=== PATIENT | female | born 1990 | race African-American/Black ===

== ENCOUNTER 2021-06-21 22:02 | Inpatient (IN) | payer OTHER, SELFPAY ==
--- NOTE | ~2021-06-21 | CT_ITS ---
EXAMINATION: CTA chest PE protocol EXAM DATE: 06/22/2021 03:24 INDICATION: Shortness of breath and elevated d-dimer. Cough. TECHNIQUE: Spiral CTA of the chest (pulmonary arteries) was performed with 100 cc Omnipaque 350 intr avenous contrast injection. Images were acquired during the pulmonary arterial phase. Coronal maxi mum intensity projection 3D-reconstructions were created by the technologist on dedicated workstation . Axial, coronal and sagittal reformatted images were reviewed. The dose-length product (DLP) for t his examination was 994.66 mGy-cm. The exposure was tailored according to patient size (auto mA exp osure control), and iterative reconstruction (ASIR) was used as additional dose reduction technique. Correlation is made to chest x-ray 06/21. FINDINGS: Pulmonary arteries are well opacified and without intraluminal filling defects. No thora cic aortic dissection. Vague ill-defined bilateral lower lobe, left upper lobe groundglass opacities could indicate COVID pneumonia given community prevalence, or other viral pneumonia. There are no p leural or pericardial effusions. Tracheobronchial tree is patent. There is no mediastinal, hilar or axillary lymphadenopathy. There is no pneumothorax. Heart normal in size. No evidence of cor onary arterial calcification. Upper abdomen is unremarkable. Right 10th and 11th rib fractures poste riorly with mature appearing callus formation. There is thoracic spondylosis without osteoblastic or osteolytic lesions identified. IMPRESSION: 1. Ill-defined vague groundglass opacities could indicate early COVID pneumonia or other infectious process. 2. Subacute right 10th, 11th rib fractures. 3. No pulmonary emboli. Reviewed, dictated and finalized at location A. IMPRESSION: 1. Ill-defined vague groundglass opacities could indicate early COVID pneumoni a or other infectious process. 2. Subacute right 10th, 11th rib fractures. 3. No pulmonary emboli.
--- NOTE | ~2021-06-21 | XR_ITS ---
EXAMINATION: XR chest 2V EXAM DATE: 06/21/2021 22:42 INDICATION: Shortness of breath, productive cough, congestion. TECHNIQUE: Frontal and lateral projections of the chest obtained and reviewed. There is no prior olman dy for comparison. FINDINGS: The lungs are clear, cannot identify the vague basilar groundglass opacities seen on CT. T here are no pleural effusions. The cardiomediastinal silhouette is within normal limits. There is n o pneumothorax suspected. The bones and soft tissues are unremarkable. IMPRESSION: Cannot visualize airspace disease identified on CT. Reviewed, dictated and finalized at location A.
[2021-06-21 22:08] VITALS: BP 176/108; PULSE 126; RESP 22; TEMP 36.6; O2SAT 100
--- NOTE | 2021-06-21 22:10 | ECG_ITS ---
Measurements Intervals [place] Rate: 125 P: 70 SC: 150 QRS: 114 QRSD: 90 T: 34 QT: 300 QTc: 433 Interpretive Statements SINUS TACHYCARDIA RIGHT AXIS DEVIATION POOR R WAVE PROGRESSION, ANTERIOR LEADS BASELINE WANDER- II, III, AVL, AVF, V1-V6 ABNORMAL ECG Electronically Signed On 06-22-2021 6:47:47 CDT by Juanito Joyner D.O.
[2021-06-21 22:52] LABS: Basophils Percent Auto 0.5 % (0.2-1.2); Eosinophils Absolute Auto 0.3 K/mm3 (0-0.3); Eosinophils Percent Auto 3.3 % (0-4.4); Hematocrit 43.5 % (37.0-47.0); Hemoglobin 13.5 g/dL (12.0-15.0); Immature Granulocyte Absolute 0.01 K/mm3 (0.00-0.031); Immature Granulocyte Percent A 0.1 % (0-0.5); Lymphocytes Absolute Auto 2.28 K/mm3 (0.9-3.2); Lymphocytes Percent Auto 29.3 % (18.3-44.2); Mean Corpuscular Hemoglobin 27.3 pg (26-34); Mean Corpuscular Volume 88.1 fl (80-100); Mean Platelet Volume 9.1 fl (7.4-10.4); Monocytes Absolute Auto 0.7 K/mm3 (0.1-0.6); Monocytes Percent Auto 9.4 % (2.6-8.5); Neutrophils Absolute Auto 4.5 K/mm3 (1.3-6.7); Neutrophils Percent Auto 57.4 % (45.5-73.1); Platelet Count Result 324 k/mm3 (150-375); Red Blood Count 4.94 M/mm3 (4.2-5.4); Red Cell Distribution Width 13.3 % (11.5-14.5); White Blood Count 7.8 K/mm3 (4.5-10.0)
[2021-06-21 23:00] LABS: Anion Gap 8 mmol/L (8-16); Blood Urea Nitrogen 9 mg/dL (7-17); Calcium 9.3 mg/dL (8.4-10.2); Carbon Dioxide 27 mmol/L (22-30); Chloride 104 mmol/L (98-107); Estimated CRCL calculation 159 ml/min; Estimated Glomerular Filt Rate > 60; Glucose 99 mg/dL (65-110); Potassium 4.4 mmol/L (3.4-5.0); Sodium 139 mmol/L (137-145)
[2021-06-22] VITALS (14 sets, daily range): BP systolic 131–169; BP diastolic 75–103; PULSE 62–130; RESP 14–28; TEMP 36.8–36.9; O2SAT 93–100; BMI 53.1; BMI 59.0
--- NOTE | 2021-06-22 01:44 | ED.URI ---
HPI - URI/Sore Throat General Chief Complaint: Shortness of Breath/Dyspnea Stated Complaint: SOB Time Seen by Provider: 06/22/21 01:37 Source: patient Mode of arrival: ambulatory Limitations: no limitations History of Present Illness HPI Narrative: Patient is a 30-year-old female complaining of cough, nasal congestion, chest congestion and shortness of breath that started 3 days ago. Patient states that her cough is productive, clear yellowish sputum. Patient denies any chest pain, abdominal pain, nausea, vomiting, fever or chills. Related Data Home Medications Medication Instructions Recorded Confirmed bupropion HCl PO 06/22/21 Allergies Allergy/AdvReac Type Severity Reaction Status Date / Time No Known Allergies Allergy Verified 06/22/21 04:43 Review of Systems Review of Systems: All systems reviewed & are unremarkable except as noted in HPI and below Constitutional: Constitutional: Denies body ache(s), Denies chills, Denies excessive sweating, Denies fatigue, Denies fever(s), Denies headache(s), Denies lethargy, Denies malaise, Denies weakness and Denies weight loss Eyes: Eyes: Denies blurry vision, Denies change in vision and Denies loss of vision ENT: Denies dizziness, Denies ear discharge, Denies headache(s), Denies lip swelling, Denies epistaxis, Denies neck pain, Denies throat swelling and Denies tongue swelling Cardiovascular: Cardiovascular: Denies chest pain, Denies chest pain at rest, Denies chest pain with activity, Denies diaphoresis, Denies rapid heart rate, Denies edema, Denies irregular heart rhythm, Denies lightheadedness, Denies palpitations, Denies dyspnea and Denies dyspnea on exertion Respiratory: Respiratory: Denies hemoptysis Gastrointestinal: Gastrointestinal: Denies abdominal pain, Denies melena, Denies hematochezia, Denies diarrhea, Denies nausea, Denies vomiting and Denies hematemesis Musculoskeletal: Musculoskeletal: Denies abnormal gait, Denies deformity, Denies joint swelling, Denies limited range of motion, Denies neck pain and Denies numbness Neurologic: Denies Abnormal speech present, Denies abnormal gait, Denies confusion, Denies dizziness, Denies headache(s), Denies focal weakness, Denies loss of vision, Denies numbness, Denies Other visual disturbances, Denies Sensory deficit (Neuro) and Denies weakness Psychiatric: Psychiatric: Denies confusion, Denies depression, Denies auditory hallucinations, Denies homicidal ideation and Denies suicidal ideation Endocrine: Endocrine: Denies cold intolerance, Denies excessive sweating, Denies fatigue, Denies heat intolerance and Denies palpitations Hematologic/Lymphatic: Hematologic/Lymphatic: Denies easy bleeding and Denies easy bruising Allergic/Immunologic: Allergic/Immunologic: Denies lip swelling, Denies throat swelling and Denies tongue swelling PMFSH Comments Past medical history: None Family history: Noncontributory Social history: Non-smoker no EtOH or drug use. Exam Const: General: cooperative, comfortable, no acute distress, well developed, alert and awake; No confusion Nutritional Appearance: obese Orientation/consciousness: oriented to person, oriented to place, oriented to time, patient oriented x3 and No confusion Limitations: no limitations HENMT: Head: normal to inspection, normocephalic and atraumatic Ears: hearing grossly normal bilaterally, TM normal on the right and TM normal on the left General nose exam: Normal external nose present, Normal nares present and No nasal discharge present Face and sinus: normal facial exam Mouth: Yes Normal oral and palatal mucosa present, Yes lip normal, Yes tongue normal and Yes oropharynx normal Throat: posterior oropharynx normal, tonsils normal and uvula midline Eyes: General: appearance normal, both eyes and all related structures Pupils: Equal, round and reactive pupils present EOM: EOMs intact bilaterally Neck: Neck: normal visual inspection, full ROM, no lymphadenopathy a
--- NOTE | 2021-06-22 01:51 | PC.NURSE ---
Called lab and spoke to Jaylyn to add on D-Dimer, Trop Baseline, BNP [phone]
[2021-06-22 02:07] LABS: D Dimer 0.53 ug/mL (<0.48)
[2021-06-22 02:21] LABS: NT Pro B Type Natriuretic Pept 203 pg/mL (5-100); Troponin I 0.048 ng/mL (0.000-0.034)
[2021-06-22] MEDS: ASPIRIN 81 MG CHEWABLE TABLET 324 MG PO (03:40)
[2021-06-22 05:49] LABS: EDCOVIDSCREEN Negative (Negative)
[2021-06-22 10:34] LABS: Troponin I 0.046 ng/mL (0.000-0.034)
--- NOTE | 2021-06-22 13:53 | PM.IMHP ---
H&P: HPI History of Present Illness Date/Time: 06/22/21 13:53 Chief Complaint: productive cough and dyspnea Narrative: Otherwise healthy 30 y/o f presents w/ 4 day hx cough that is progressively more productive. Initially sputum was clear, then yellow tinged. 06/21 sputum was thick and yellow and she experienced SEWELL with ADLs such as dressing or walking across the house. Her boyfriend's 5 y/o dtr had a febrile URI approximately 5 days prior to the onset of the patient's symptoms. Her symptoms resolved within 5 days. She denied chest pain, wheezing, hemoptysis, hx recurrent resp infections, gi/gu changes (other than mild nausea 06/21), abnl bleeding, rash, itching, headache, weakness. She denied recent travel. Received Moderna COVID-19 vaccination 03/2021 and 04/2021 (about one month ago). ED rapid covid test was negative. Denies significant health issues other than depression (takes Wellbutrin SR 150mg bid) and vitamin D deficiency (D3 1000U daily). Has an IUD and is amenorrheic due to that. Review of Systems Review of Systems: All systems reviewed & are unremarkable except as noted in HPI and below PMFSH Past Medical History Medical History (Updated 06/22/21 @ 14:48 by Babar Tolliver MD) Depression Vitamin D deficiency Family History Family History (Updated 06/22/21 @ 14:29 by Babar Tolliver MD) Father No problems noted. Mother No problems noted. Social History Social History (Updated 06/22/21 @ 14:32 by Babar Tolliver MD) Social History: Resides with her boyfriend and his 3 children. Works from home for [employer]. Nonsmoker. No recreational drugs. Drinks only at weddings and on holidays. Has 3 sisters and 1 brother, all well. Has gastric sleeve surgery scheduled for 07/26/2021. Smoking status: Never smoker Alcohol intake: current Alcohol use details: Drinks in moderation only on special occasions Substance use: former Substance use type: marijuana Other substance usage details: Stopped smoking cannabis several years ago. Last use: 11/2020 Living arrangements: with family Occupation/Education: occupation Additional occupation/education comments: [employer] Gender identity (if verbalized by the patient): Female Spiritual care concerns: No Meds Home Medications and Allergies Home Medications Medication Instructions Recorded Confirmed Type bupropion HCl PO 06/22/21 History cholecalciferol (vitamin D3) 1,000 unit PO DAILY 06/22/21 06/22/21 History Allergies Allergy/AdvReac Type Severity Reaction Status Date / Time No Known Allergies Allergy Verified 06/22/21 04:43 Vital Signs Vital Signs - 24 hr 06/21/21 22:08 06/22/21 01:54 06/22/21 02:38 Temperature 97.8 F Pulse Rate 126 H 62 109 H Respiratory Rate 22 H 20 22 H Blood Pressure 176/108 H 143/79 H 147/91 H Pulse Oximetry 100 95 95 06/22/21 04:50 06/22/21 06:17 06/22/21 07:21 Temperature Pulse Rate 118 H 113 H 117 H Respiratory Rate 18 14 16 Blood Pressure 161/75 H 145/103 H 168/94 H Pulse Oximetry 98 93 100 06/22/21 09:23 Temperature Pulse Rate 118 H Respiratory Rate 28 H Blood Pressure 169/98 H Pulse Oximetry 100 Exam Narrative: HEENT: PERRL, sclerae nonicteric, pharyngeal mucosa pink and intact NECK: No JVD CHEST: Slightly coarse posterior BS w/o crackles or wheezes, clear anteriorly. Normal effort. HEART: NL S1/S2, regular, no murmur ABDOMEN: BS+, soft, nontender, no mass, no bruits EXTREMITIES: No cyanosis, edema, or clubbing NEUROLOGIC: CN intact and symmetric to inspection. MUSCULOSKELETAL: Tone and strength symmetric. PSYCH: Alert. Oriented to person, place, and time. H&P: Results Labs Labs: Short CBC 06/21/21 Range/Units 22:21 WBC 7.8 (4.5-10.0) K/mm3 Hgb 13.5 (12.0-15.0) g/dL Hct 43.5 (37.0-47.0) % Plt Count 324 (150-375) k/mm3 BMP 06/21/21 22:21 Sodium 139 Potassium 4.4 Chloride 104 Carbon Dioxi
--- NOTE | 2021-06-22 14:31 | ADMGEN ---
This patient, Dionne Davis, was admitted to Virtual Bed IMU-1.PT currently being boarded in ED room 14. Patient/family oriented to hospital policies and general routines including ID bracelet, bed and alarms, visiting hours, pain management, procedures, bathroom and other care routines, personal items, smoking policy, room service/diet, and visiting hours. Information on how to activate the Rapid Response Team has been discussed. Patient/Family are encouraged to report perceived risks to care and to ask questions if they do not understand what they are told or what they should do.
--- NOTE | 2021-06-22 15:05 | ADMGEN ---
This patient, Dionne Davis, was admitted to IMU Room 204-01 from ER Patient oriented to hospital policies and general routines including ID bracelet, bed and alarms, visiting hours, pain management, procedures, bathroom and other care routines, personal items, smoking policy, room service/diet, and visiting hours. Admission question completed in ER prior to admission to IMU Information on how to activate the Rapid Response Team has been discussed. Patient are encouraged to report perceived risks to care and to ask questions if they do not understand what they are told or what they should do.
[2021-06-22] MEDS: guaiFENesin/DEXTROMETHORPHAN 10 ML UDC PO ×2 (16:33→22:16)
[2021-06-23] VITALS (20 sets, daily range): BP systolic 117–151; BP diastolic 71–105; PULSE 59–124; RESP 14–20; TEMP 36.3–37.1; O2SAT 97–100
--- NOTE | 2021-06-23 | ECHO_ITS ---
Patient Info Name: Dionne Davis Age: 30 years : 1990 Gender: Female Ht: 63 in Wt: 333 lbs BSA: 2.70 m2 HR: 111 bpm BP: 134 / 76 mmHg Heart Rhythm: Tachycardia Technical Quality: Poor Exam Date: 06/23/2021 9:39 AM Exam Location: [facility] Pulmonary Exam Room: [facility] Patient Status: Inpatient Admit Date: 06/22/2021 Staff Ordering Physician: Cheri Jessica MD Desktop Publishing Specialist: Irina Davey RDCS Attending Provider: Cheri Jessica MD Exam Type: CA echo dop color flow w con Study Info Indications - ELEVATED TROPS R07.9 - Chest pain, unspecified Complete two-dimensional, color flow and Doppler transthoracic echocardiogram is performed with contrast to opacify the left ventricle and to improve the deliniation of the left ventricle endocardial borders. Contrast/Agitated Saline Contrast/Ag. Saline: Definity Amount: 2.00 ml Administered By: Nanda Severino RN Existing IV Access: Yes IV Access Condition: patent with no signs of infiltration Reason for Poor Study: patient body habitus Summary 1. Left ventricular chamber dimension is mildly enlarged. 2. Left ventricular systolic function is moderately reduced, estimated at 30-35%. 3. There is mildly increased left ventricular wall thickness. 4. Left ventricular septal wall motion is abnormal with septal motion related to bundle branch block. 5. The left ventricular diastolic function is abnormal. 6. Left atrial chamber dimension is mildly enlarged. 7. There is mild to moderate mitral valve regurgitation. 8. The mitral valve has thickened leaflets. 9. There is mild tricuspid valve regurgitation. 10. Moderate pulmonary hypertension, estimated pulmonary arterial systolic pressure is 45 mmHg. 11. There is mild pulmonic regurgitation. 12. EF may be underestimated due to the technical limitations of the study secondary to body habitus. Left Ventricle Left ventricular chamber dimension is mildly enlarged. Left ventricular systolic function is moderately reduced, estimated at 30-35%. There is mildly increased left ventricular wall thickness. Left ventricular septal wall motion is abnormal with septal motion related to bundle branch block. The left ventricular diastolic function is abnormal. Right Ventricle Right ventricular chamber dimension is normal. Right ventricular systolic function is normal. Left Atria Left atrial chamber dimension is mildly enlarged. Right Atria Right atrial chamber dimension is normal. Atrial Septum Intact interatrial septum visualized by color flow imaging. Aortic Valve The aortic valve is trileaflet. There is no aortic valve sclerosis. There is no aortic valve stenosis. There is trace aortic valve regurgitation. Pulmonic Valve The pulmonic valve is normal. There is no pulmonic valve stenosis. There is mild pulmonic regurgitation. Mitral Valve The mitral valve has thickened leaflets. There is no mitral valve stenosis. There is mild to moderate mitral valve regurgitation. Tricuspid Valve The tricuspid valve leaflets are normal. There is no significant tricuspid valve stenosis. There is mild tricuspid valve regurgitation. Moderate pulmonary hypertension, estimated pulmonary arterial systolic pressure is 45 mmHg. Other Findings EF may be underestimated due to the technical limitations of the study secondary to body habitus. Pericardium/Pleural The pericardium
[2021-06-23] MEDS: guaiFENesin/DEXTROMETHORPHAN 10 ML UDC PO ×3 (05:05→18:46)
[2021-06-23] MEDS: CHOLECALCIFEROL 1,000 UNITS TABLET 1000 UNITS PO (09:02)
[2021-06-23] MEDS: buPROPion HCL SR (12 HR) 150 MG TAB PO ×2 (09:02→20:06)
[2021-06-23] MEDS: ENOXAPARIN 40 MG/0.4 ML SYRINGE SUB-Q (09:04)
[2021-06-23] MEDS: PERFLUTREN LIPID MICROSPHERES 1.5 ML VIAL DILUTED TO 10 ML TOTAL VOLUME IV PUSH (10:14)
--- NOTE | 2021-06-23 11:46 | PM.IMPN ---
Progress Note: A&P Assessment and Plan (1) CAP (community acquired pneumonia): Qualifiers: Laterality: unspecified laterality Qualified Code(s): J18.9 - Pneumonia, unspecified organism Code(s): J18.9 - Pneumonia, unspecified organism Status: Acute Assessment and Plan: PORT/PSI SCORE 19 (0.1% MORTALITY) Rapid COVID-19 Ag test negative (on day 4 of illness) Received one dose of dexamethasone in ED Ceftriaxone and Azithromycin per protocol, Day 1 Monitor s/sx Likely home soon (2) Elevated troponin I level: Code(s): R77.8 - Other specified abnormalities of plasma proteins Status: Acute Assessment and Plan: Likely due to CAP, myocarditis less likely Echo pending (3) Depression: Qualifiers: Depression Type: unspecified Qualified Code(s): F32.9 - Major depressive disorder, single episode, unspecified Code(s): F32.9 - Major depressive disorder, single episode, unspecified Status: Acute Assessment and Plan: Continue Wellbutrin SR 150mg bid (4) Vitamin D deficiency: Code(s): E55.9 - Vitamin D deficiency, unspecified Status: Acute Assessment and Plan: Continue D3 1000 U daily (5) Abnormal echocardiogram: Code(s): R93.1 - Abnormal findings on diagnostic imaging of heart and coronary circulation Status: Acute (6) Elevated troponin: Code(s): R77.8 - Other specified abnormalities of plasma proteins Status: Acute (7) Viral pneumonia: Code(s): J12.9 - Viral pneumonia, unspecified Status: Acute (8) Tachycardia: Code(s): R00.0 - Tachycardia, unspecified Status: Acute Additional Plan 06/23/21 CT imaging reviewed shows ground-glass opacities possible early COVID versus PNA. Appropriate laboratory evaluation ordered to assess the difference between these 2. Additionally, she is noted to have reduced ejection fraction on echocardiogram as a preliminary finding cardiology is consulted to review images and give final diagnosis and recommendations for ongoing care. Time Spent With Patient Time with patient: Greater than 35 minutes Subjective Date/time seen: 06/23/21 11:46 Patient with frequent coughing during our interview. She denies any fever or chills change of smell or taste. She denies any known sick contacts. CT imaging reviewed shows ground-glass opacities possible early COVID versus PNA. Appropriate laboratory evaluation ordered to assess the difference between these 2. Additionally she is noted to have reduced ejection fraction on echocardiogram as a preliminary finding cardiology is consulted to review images and give final diagnosis and recommendations for ongoing care. Exam Narrative: HEENT: Morbidly obese sclerae nonicteric, pharyngeal mucosa pink and intact NECK: No JVD CHEST: Decreased breath sounds. Normal effort. HEART: NL S1/S2, regular rhythm with increased rate, no murmur ABDOMEN: BS+, soft, nontender, no mass, no bruits EXTREMITIES: No cyanosis, edema, or clubbing NEUROLOGIC: CN intact no focal neurological deficits appreciated patient is alert and oriented x3 MUSCULOSKELETAL: Tone and strength symmetric. PSYCH: Mood and affect congruent. Objective Data Vital Signs Vital Signs: Vital Signs - 24 hr 06/22/21 13:53 06/22/21 15:00 06/22/21 15:11 Temperature 98.5 F Pulse Rate 120 H 118 H Respiratory Rate 20 18 Blood Pressure 131/102 H 142/76 H 142/77 H Pulse Oximetry 97 98 06/22/21 16:00 06/22/21 19:00 06/22/21 19:20 Temperature 98.2 F Pulse Rate 115 H 113 H 114 H Respiratory Rate 18 Blood Pressure 159/85 H Pulse Oximetry 100 06/22/21 20:00 06/22/21 22:00 06/23/21 00:00 Temperature 97.4 F L Pulse Rate 118 H 130 H 124 H Respiratory Rate 16 Blood Pressure 126/86 Pulse Oximetry 100 06/23/21 01:42 06/23/21 04:00 06/23/21 05:47 Temperature 97.6 F Pulse Rate 115 H 102 H 108 H Respiratory Rate 18 Bl
[2021-06-23 13:04] LABS: Amphetamine Screen Urine Negative (Negative); Barbiturate Screen Urine Negative (Negative); Benzodiazepines Screen Urine Negative (Negative); Cannabinoid Screen Urine Negative (Negative); Cocaine Screen Urine Negative (Negative); Methadone Screen Urine Negative (Negative); Opiate Screen Urine Negative (Negative); Phencyclidine Screen Urine Negative (Negative)
[2021-06-23] MEDS: FUROSEMIDE INJ 40 MG/4 ML VIAL 20 MG IV PUSH (14:05)
[2021-06-23] MEDS: METOPROLOL TARTRATE 6.25 MG TABLET PO (14:05)
[2021-06-23 14:24] LABS: Basophils Percent Auto 0.3 % (0.2-1.2); Hematocrit 44.1 % (37.0-47.0); Hemoglobin 13.5 g/dL (12.0-15.0); Immature Granulocyte Absolute 0.05 K/mm3 (0.00-0.031); Immature Granulocyte Percent A 0.5 % (0-0.5); Lymphocytes Absolute Auto 1.41 K/mm3 (0.9-3.2); Lymphocytes Percent Auto 13.3 % (18.3-44.2); Mean Corpuscular HGB Conc 30.6 g/dl (32-36); Mean Corpuscular Hemoglobin 27.8 pg (26-34); Mean Corpuscular Volume 90.9 fl (80-100); Monocytes Absolute Auto 0.9 K/mm3 (0.1-0.6); Monocytes Percent Auto 8.3 % (2.6-8.5); Neutrophils Absolute Auto 8.2 K/mm3 (1.3-6.7); Neutrophils Percent Auto 77.6 % (45.5-73.1); Platelet Count Result 306 k/mm3 (150-375); Red Blood Count 4.85 M/mm3 (4.2-5.4); Red Cell Distribution Width 13.8 % (11.5-14.5); White Blood Count 10.6 K/mm3 (4.5-10.0)
[2021-06-23 14:41] LABS: D Dimer 0.31 ug/mL (<0.48)
[2021-06-23 14:48] LABS: Alanine Aminotransferase 26 U/L (4-35); Alkaline Phosphatase 61 U/L (38-126); Anion Gap 8 mmol/L (8-16); Aspartate Amino Transferase 26 U/L (14-36); Bilirubin,Total 0.4 mg/dL (0.2-1.3); Blood Urea Nitrogen 13 mg/dL (7-17); CRP 2.6 mg/dL (<1.0); Calcium 9.8 mg/dL (8.4-10.2); Carbon Dioxide 27 mmol/L (22-30); Chloride 103 mmol/L (98-107); Estimated CRCL calculation 169 ml/min; Estimated Glomerular Filt Rate > 60; Glucose 144 mg/dL (65-110); Lactate Dehydrogenase 459 U/L (313-618); Potassium 4.5 mmol/L (3.4-5.0); Sodium 138 mmol/L (137-145)
[2021-06-23 14:54] LABS: NT Pro B Type Natriuretic Pept 208 pg/mL (5-100)
[2021-06-23 15:13] LABS: Erythrocyte Sedimentation Rate 19 mm/hr (0-20)
--- NOTE | 2021-06-23 15:39 | PM.CNCAR ---
Assessment and Plan Assessment and plan (1) Cardiomyopathy: Code(s): I42.9 - Cardiomyopathy, unspecified Status: Acute Assessment and Plan: This is probably nonischemic in etiology. Considerations include obesity cardiomyopathy, viral cardiomyopathy, sleep apnea related versus idiopathic versus hypertension versus other. Will check a TSH and T4 level. Check ferritin levels. Will increase her metoprolol to 12.5 mg p.o. b.i.d. and eventually transition her to long-acting metoprolol given his CHF indication. Will also start her on Entresto 12/13 mg p.o. b.i.d. and up titrate as able. Start furosemide scheduled 20 mg p.o. daily and up titrate also as needed. Will order an apnea link but she does state as part of her workup for gastric bypass surgery which was scheduled for June she did have to see a top ironer and was told that she likely has sleep apnea and was supposed to have either home study or a in-lab study. Will likely get a cardiac MRI as an outpatient to evaluate for any evidence of myocarditis or infiltrative cardiomyopathy and eventually a stress test also as an outpatient albeit unlikely that this is ischemic in etiology. Will also order a LifeVest upon discharge (2) Systolic congestive heart failure: Code(s): I50.20 - Unspecified systolic (congestive) heart failure Status: Acute Assessment and Plan: As detailed above. Start her on Entresto, beta-valarie, furosemide add to the regimen as need be. (3) Elevated troponin I level: Code(s): R77.8 - Other specified abnormalities of plasma proteins Status: Acute Assessment and Plan: Likely related to CHF above (4) Tachycardia: Code(s): R00.0 - Tachycardia, unspecified Status: Acute Assessment and Plan: Likely for decompensation (5) Elevated troponin: Code(s): R77.8 - Other specified abnormalities of plasma proteins Status: Acute (6) Morbid obesity: Code(s): E66.01 - Morbid (severe) obesity due to excess calories Status: Acute History of Present Illness History of Present Illness Consult date/time: 06/23/21 15:39 Requesting physician: Honey Platt MD Consult reason: congestive heart failure and Other (Elevated troponin) Reason For Visit: Viral Pneumonia/Elev Trop Narrative: Date of service 06/23/2021 Reason consultation: CHF, cardiomyopathy, elevated troponin Requesting provider Dr. Platt History: Patient is a 30-year-old female who came to the hospital because of cough and shortness of breath. She had bronchitis last December of 2019 but was not tested for COVID at the time. This episode lasted about 2 weeks and she states that she was coughing severely at that time. She also was diagnosed with bronchitis in March of this year treated with steroids and antibiotics and she did feel better. She did have severe coughing at that time and actually felt the right side of her body hurt. CT scan of the chest at admission did show some rib fractures which is likely the cause of the right-sided pain. She started to have another episode of coughing on Monday which is 4 days ago at this point. The cough was productive of a yellow mucus. Coughing was quite severe. Then on Monday which is 2 days ago she had a episode of shortness of breath with almost any activity and she decided to come to the hospital for further evaluation at that point. She denies any chest pain, syncope, presyncope, paroxysmal nocturnal dyspnea, orthopnea. Has had a little bit of swelling in her feet. No palpitations. Her daughter did have a viral illness a couple of days ago but her fever broke very shortly thereafter. The patient herself was coughing prior to the illness. She did receive her COVID vaccine in March and April of 2021. Rapid COVID test was negative. Echocardiogram was performed today which I personally read showing ejection fraction around 35%. BNP and troponin were slig
[2021-06-23] MEDS: PHARMACIST COMMUNICATION ORDER 1 EACH XX (19:01)
[2021-06-23] MEDS: SACUBITRIL/VALSARTAN 12-13 MG TABLET 1 TAB PO (20:07)
[2021-06-23] MEDS: METOPROLOL TARTRATE 12.5 MG TABLET PO (20:07)
[2021-06-23] MEDS: BENZONATATE 100 MG CAPSULE PO (21:40)
[2021-06-24] VITALS (16 sets, daily range): BP systolic 100–147; BP diastolic 61–89; PULSE 80–115; RESP 12–20; TEMP 36.5–36.9; O2SAT 95–100
[2021-06-24] MEDS: BENZONATATE 100 MG CAPSULE PO ×2 (05:20→20:23)
[2021-06-24] MEDS: ENOXAPARIN 40 MG/0.4 ML SYRINGE SUB-Q (09:52)
[2021-06-24] MEDS: METOPROLOL TARTRATE 12.5 MG TABLET PO (09:53)
[2021-06-24] MEDS: FUROSEMIDE 20 MG TABLET PO (09:53)
[2021-06-24] MEDS: buPROPion HCL SR (12 HR) 150 MG TAB PO ×2 (09:54→20:23)
[2021-06-24] MEDS: SACUBITRIL/VALSARTAN 12-13 MG TABLET 1 TAB PO (09:54)
[2021-06-24] MEDS: CHOLECALCIFEROL 1,000 UNITS TABLET 1000 UNITS PO (09:54)
--- NOTE | 2021-06-24 11:12 | PM.PNCARD ---
Progress Note: A&P Assessment and Plan (1) Cardiomyopathy: Code(s): I42.9 - Cardiomyopathy, unspecified Status: Acute Assessment and Plan: This is probably nonischemic in etiology. Considerations include obesity cardiomyopathy, viral cardiomyopathy, sleep apnea related versus idiopathic versus hypertension versus other. TSH, T4 and ferritin: Pending Will transition her from short-acting metoprolol to long-acting Toprol XL given its CHF/cardiomyopathy indication. Will start at 25 mg PO daily. Continue furosemide. Up titrate Entresto to 24/26 mg 1 tablet p.o. b.i.d.. Will likely get a cardiac MRI as an outpatient to evaluate for any evidence of myocarditis or infiltrative cardiomyopathy and eventually a stress test also as an outpatient albeit unlikely that this is ischemic in etiology. Life vest pending (2) Systolic congestive heart failure: Code(s): I50.20 - Unspecified systolic (congestive) heart failure Status: Acute Assessment and Plan: As detailed above. Continue Entresto, beta-valarie, furosemide (3) Elevated troponin I level: Code(s): R77.8 - Other specified abnormalities of plasma proteins Status: Acute Assessment and Plan: Likely related to CHF above (4) Tachycardia: Code(s): R00.0 - Tachycardia, unspecified Status: Acute Assessment and Plan: Likely for decompensation (5) Elevated troponin: Code(s): R77.8 - Other specified abnormalities of plasma proteins Status: Acute (6) Morbid obesity: Code(s): E66.01 - Morbid (severe) obesity due to excess calories Status: Acute Subjective Date/time seen: 06/24/21 11:12 Interval history: 30-year-old with cough and shortness of breath. Date of service 06/24/2021: Feels better. Had a coughing fit yesterday but overall breathing is improving coughing is better. No chest pain Review of Systems Review of Systems: All systems reviewed & are unremarkable except as noted in HPI and below Constitutional: Constitutional: Denies excessive sweating, Denies fatigue, Denies headache(s) and Denies weakness Eyes: Eyes: Denies blurry vision ENT: Reports Normal hearing present, Denies headache(s), Denies lip swelling and Denies neck pain Cardiovascular: Cardiovascular: Denies chest pain, Reports pedal edema and Reports dyspnea Respiratory: Respiratory: Reports dyspnea Gastrointestinal: Gastrointestinal: Denies abdominal pain Genitourinary: Genitourinary: Denies hematuria and Denies flank pain Musculoskeletal: Musculoskeletal: Denies back pain and Denies neck pain Integumentary/Breasts: Skin/Breast: Denies dry skin Neurologic: Reports Normal hearing present, Denies confusion, Denies headache(s) and Denies weakness Psychiatric: Psychiatric: Denies anxiety and Denies confusion Endocrine: Endocrine: Denies excessive sweating and Denies fatigue Hematologic/Lymphatic: Hematologic/Lymphatic: Denies easy bleeding Allergic/Immunologic: Allergic/Immunologic: Denies GI upset with certain foods and Denies lip swelling Exam Narrative: Alert oriented. Appears to be in no acute distress Const: General: comfortable and no acute distress; No confusion Orientation/consciousness: No confusion HENMT: General nose exam: Normal nares present Eyes: Sclera: sclerae normal Neck: Neck: supple and no JVD Chest: Other: No reproducible chest wall pain to palpation Resp: Auscultation: diminished lung sounds Cardio: Rate: tachycardic Rhythm: regular rhythm Skin: General skin exam: normal color Neuro: General: No confusion Cranial nerves: Yes Normal hearing present Cognition (Neuro): normal cognition Speech: normal speech Extrem: General: normal to inspection and edema (Very mild bilateral lower extremity edema) Psych: Mental Status: mental status grossly normal Objective Data Vital Signs Vital Signs: Vital Signs - 24 hr 06/23/21 12:00 06/23/21 14:00
[2021-06-24 12:19] LABS: Basophils Absolute Auto 0.1 K/mm3 (0.0-0.1); Basophils Percent Auto 0.7 % (0.2-1.2); Eosinophils Absolute Auto 0.1 K/mm3 (0-0.3); Hematocrit 45.6 % (37.0-47.0); Hemoglobin 13.9 g/dL (12.0-15.0); Immature Granulocyte Absolute 0.04 K/mm3 (0.00-0.031); Immature Granulocyte Percent A 0.5 % (0-0.5); Lymphocytes Absolute Auto 2.68 K/mm3 (0.9-3.2); Lymphocytes Percent Auto 32.9 % (18.3-44.2); Mean Corpuscular HGB Conc 30.5 g/dl (32-36); Mean Corpuscular Hemoglobin 27.7 pg (26-34); Mean Corpuscular Volume 90.8 fl (80-100); Monocytes Absolute Auto 0.5 K/mm3 (0.1-0.6); Monocytes Percent Auto 6.4 % (2.6-8.5); Neutrophils Absolute Auto 4.8 K/mm3 (1.3-6.7); Neutrophils Percent Auto 58.5 % (45.5-73.1); Platelet Count Result 348 k/mm3 (150-375); Red Blood Count 5.02 M/mm3 (4.2-5.4); White Blood Count 8.1 K/mm3 (4.5-10.0)
[2021-06-24 12:29] LABS: Anion Gap 7 mmol/L (8-16); Blood Urea Nitrogen 20 mg/dL (7-17); Calcium 9.5 mg/dL (8.4-10.2); Carbon Dioxide 32 mmol/L (22-30); Chloride 97 mmol/L (98-107); Estimated CRCL calculation 129 ml/min; Estimated Glomerular Filt Rate > 60; Glucose 116 mg/dL (65-110); Potassium 3.6 mmol/L (3.4-5.0); Sodium 136 mmol/L (137-145)
--- NOTE | 2021-06-24 15:21 | PM.IMPN ---
Progress Note: A&P Assessment and Plan (1) CAP (community acquired pneumonia): Qualifiers: Laterality: unspecified laterality Qualified Code(s): J18.9 - Pneumonia, unspecified organism Code(s): J18.9 - Pneumonia, unspecified organism Status: Acute Assessment and Plan: PORT/PSI SCORE 19 (0.1% MORTALITY) Rapid COVID-19 Ag test negative (on day 4 of illness) Received one dose of dexamethasone in ED Ceftriaxone and Azithromycin per protocol, Day 1 Monitor s/sx Likely home soon (2) Elevated troponin I level: Code(s): R77.8 - Other specified abnormalities of plasma proteins Status: Acute Assessment and Plan: Likely due to CAP, myocarditis less likely Echo reviewed Summary 1. Left ventricular chamber dimension is mildly enlarged. 2. Left ventricular systolic function is moderately reduced, estimated at 30-35%. 3. There is mildly increased left ventricular wall thickness. 4. Left ventricular septal wall motion is abnormal with septal motion related to bundle branch block. 5. The left ventricular diastolic function is abnormal. 6. Left atrial chamber dimension is mildly enlarged. 7. There is mild to moderate mitral valve regurgitation. 8. The mitral valve has thickened leaflets. 9. There is mild tricuspid valve regurgitation. 10. Moderate pulmonary hypertension, estimated pulmonary arterial systolic pressure is 45 mmHg. 11. There is mild pulmonic regurgitation. 12. EF may be underestimated due to the technical limitations of the study secondary to body habitus. (3) Depression: Qualifiers: Depression Type: unspecified Qualified Code(s): F32.9 - Major depressive disorder, single episode, unspecified Code(s): F32.9 - Major depressive disorder, single episode, unspecified Status: Acute Assessment and Plan: Continue Wellbutrin SR 150mg bid (4) Vitamin D deficiency: Code(s): E55.9 - Vitamin D deficiency, unspecified Status: Acute Assessment and Plan: Continue D3 1000 U daily (5) Abnormal echocardiogram: Code(s): R93.1 - Abnormal findings on diagnostic imaging of heart and coronary circulation Status: Acute (6) Elevated troponin: Code(s): R77.8 - Other specified abnormalities of plasma proteins Status: Acute (7) Viral pneumonia: Code(s): J12.9 - Viral pneumonia, unspecified Status: Acute Assessment and Plan: Ruled out (8) Tachycardia: Code(s): R00.0 - Tachycardia, unspecified Status: Acute Additional Plan 06/23/21 CT imaging reviewed shows ground-glass opacities possible early COVID versus PNA. Appropriate laboratory evaluation ordered to assess the difference between these 2. Additionally, she is noted to have reduced ejection fraction on echocardiogram as a preliminary finding cardiology is consulted to review images and give final diagnosis and recommendations for ongoing care. 06/24/21 pt does not have any lab findings consistent w active covid infection. She reports that her symptoms are improving with diuresis. Patient then have significantly reduced EF 30-35% and is diagnosed with new onset systolic congestive heart failure and will be fitted for a Zoll. Subjective Date/time seen: 06/24/21 15:21 Patient doing okay she reports that she is feeling better today in that her symptoms are improving. We reviewed lifestyle modifications that have been presented to her and patient reports understanding. Exam Narrative: HEENT: Morbidly obese sclerae nonicteric, pharyngeal mucosa pink and intact NECK: No JVD CHEST: Decreased breath sounds. Normal effort. HEART: NL S1/S2, regular rhythm with increased rate, no murmur ABDOMEN: BS+, soft, nontender, no mass, no bruits EXTREMITIES: No cyanosis, edema, or clubbing NEUROLOGIC: CN intact no focal neurological deficits appreciated patient is alert and oriented x3 MUSCULOSKELETAL: Tone and s
[2021-06-24] MEDS: SACUBITRIL/VALSARTAN 24-26 MG TABLET 1 TAB PO (20:23)
[2021-06-25] VITALS (7 sets, daily range): BP systolic 132–135; BP diastolic 82–91; PULSE 100–125; RESP 14–18; TEMP 36.1–36.4; O2SAT 99–100
--- NOTE | 2021-06-25 07:29 | PM.CNPUL ---
Assessment and Plan Assessment and plan (1) Daytime hypersomnia: Code(s): G47.10 - Hypersomnia, unspecified Status: Acute Assessment and Plan: Patient with morbid obesity with a BMI of 58.5, daytime hypersomnia, Hooper Sleepiness Scale score of 11 and witnessed apneas by her boyfriend in the past. She had an apnea link performed on room air on 06/23 demonstrating an AHI of 24.1, baseline saturation 99%, lowest saturation 71%, time with saturation less than or equal to 88% was 78 minutes. She does qualify for nocturnal oxygen with these numbers and spoke with respiratory career transition specialist to see if her insurance requires a polysomnogram before prescribing oxygen at night. If she can qualify for oxygen at night I would discharge her on 2 L at night with a follow-up outpatient overnight oximetry. I will check a arterial blood gas during the day to assess for hypercarbia. She will need an outpatient polysomnogram to diagnosis obstructive sleep apnea prior to the initiation of any CPAP treatment As she may have a concurrent sleep-related breathing disorder like central apneas which can be worsened with inadequate positive airway pressure treatment. I have given her our business card and she can follow-up with us in the Pulmonary Clinic here in 2-3 weeks if she chooses. I will notify our sampler and test preparer. She will also call [facility] where she was previously scheduled to have a sleep study to determine if they can do a sleep study sooner. Inpatient Pulmonary Follow-up will resume 06/29. Call with any questions. History of Present Illness History of Present Illness Consult date: 06/25/21 Requesting physician: Honey Platt MD Reason for consult: obstructive sleep apnea Chief complaint: Viral Pneumonia/Elev Trop Narrative: this is a new Pulmonary consult for obstructive sleep apnea 30-year-old morbidly obese woman with a BMI of 58.5 who presented on 06/22 with cough and shortness of breath. Patient was found to have a cardiomyopathy with an echo demonstrating moderately reduced LV function at 30-35%, diastolic dysfunction, mildly enlarged left atrium mild to moderate mitral regurg, mild tricuspid regurg with a pulmonary arterial systolic pressure of 45, mild SD, normal right ventricle chamber size and function and normal right atrial size. Patient has been diuresed and has improved. I was consulted for obstructive sleep apnea. Patient was actually being evaluated for gastric bypass surgery in saw volleyball coach at [facility] in [place] approximately 4 months ago. The patient tells me they did a screening questionnaire and were concerned that she had obstructive sleep apnea. A sleep study was scheduled and a date was given but the patient did not make that appointment and she has failed to reschedule the test. Patient states that she currently weighs 300 lb and has gained weight consistently throughout her life. Patient does tell me she falls asleep very easily during the day. The patient does snore. 5-6 months ago she was told she had witnessed apnea events by her boyfriend. She has morning headaches 1 time a week. She has dyspnea on exertion at 2-1/2 blocks now. Patient's TSH is 1.60 and her free T4 is 11.4 on this admission. I performed an Hooper Sleepiness Scale score today which was 11. Patient states she smoked tobacco socially many years ago at 1-2 cigarettes per week and none since then. Patient vapor tobacco from December to January of 2021 at 3 to 4 times a week. Patient smoked marijuana pipe regularly from [id number] at about 1-2 pipe fills per day. Her last use of smoke marijuana was 221. Patient denies snorting cocaine, heroin or methamphetamine. Patient denies occupational exposures such as sandblasting, welding, asbestos were, professional painting, or steel wood mill supervisor. Review of Systems Review of Systems: All systems reviewed & are unremarkable except as noted in HP
--- NOTE | 2021-06-25 08:34 | PM.DS ---
DS: Admitting Diagnosis Admitting Diagnosis Assessment and plan (1) CAP (community acquired pneumonia): Qualifiers: Laterality: unspecified laterality Qualified Code(s): J18.9 - Pneumonia, unspecified organism Code(s): J18.9 - Pneumonia, unspecified organism Status: Acute Assessment and Plan: PORT/PSI SCORE 19 (0.1% MORTALITY) Rapid COVID-19 Ag test negative (on day 4 of illness) Received one dose of dexamethasone in ED Ceftriaxone and Azithromycin per protocol, Day 1 Monitor s/sx Likely home soon (2) Elevated troponin I level: Code(s): R77.8 - Other specified abnormalities of plasma proteins Status: Acute Assessment and Plan: Likely due to CAP, myocarditis less likely Echo pending (3) Depression: Qualifiers: Depression Type: unspecified Qualified Code(s): F32.9 - Major depressive disorder, single episode, unspecified Code(s): F32.9 - Major depressive disorder, single episode, unspecified Status: Acute Assessment and Plan: Continue Wellbutrin SR 150mg bid (4) Vitamin D deficiency: Code(s): E55.9 - Vitamin D deficiency, unspecified Status: Acute Assessment and Plan: Continue D3 1000 U daily DS: Discharge Diagnosis Discharge Diagnosis (1) Daytime hypersomnia: Code(s): G47.10 - Hypersomnia, unspecified Status: Acute (2) Morbid obesity: Code(s): E66.01 - Morbid (severe) obesity due to excess calories Status: Acute (3) Systolic congestive heart failure: Code(s): I50.20 - Unspecified systolic (congestive) heart failure Status: Acute (4) Cardiomyopathy: Code(s): I42.9 - Cardiomyopathy, unspecified Status: Acute (5) Tachycardia: Code(s): R00.0 - Tachycardia, unspecified Status: Acute (6) Elevated troponin I level: Code(s): R77.8 - Other specified abnormalities of plasma proteins Status: Acute (7) Abnormal echocardiogram: Code(s): R93.1 - Abnormal findings on diagnostic imaging of heart and coronary circulation Status: Acute (8) Vitamin D deficiency: Code(s): E55.9 - Vitamin D deficiency, unspecified Status: Acute (9) Depression: Qualifiers: Depression Type: unspecified Qualified Code(s): F32.9 - Major depressive disorder, single episode, unspecified Code(s): F32.9 - Major depressive disorder, single episode, unspecified Status: Acute DS: Summary Hospital Course Reason for hospitalization: SOB and cough Hospital Course: 30-year-old female admitted x PNA subsequently found to have acute exacerbation of new dx of systolic congestive heart failure (ejection fraction of 30-35%). Cardiology was consulted and per their note believe that this is probably nonischemic in etiology. Considerations included obesity cardiomyopathy, viral cardiomyopathy, sleep apnea related versus idiopathic versus hypertension versus other. Sleep study was performed and patient was found to have apnea. Dr. Mcmillan was consulted for ongoing outpatient pulm care. Recommendations were given to continue Toprol-XL and Entresto Will likely get a cardiac MRI as an outpatient to evaluate for any evidence of myocarditis or infiltrative cardiomyopathy and eventually a stress test also as an outpatient albeit unlikely that this is ischemic in etiology. She is discharged home in stable condition with life vest and medications as prescribed by cardiology with indications to follow up with Dr. Mcmillan for CPAP machine in his office, Cardiology, and her PCP. Status at Discharge Functional status at discharge: independent ambulation Overall status at discharge: patient is back to baseline Time Spent with Patient Time attestation: Total time spent providing and/or coordinating discharge services: Time spent: Greater than 30 minutes Exam Narrative: HEENT: Morbidly obese sclerae nonicteric, pharyngeal mucosa pink and intact NECK: N
[2021-06-25] MEDS: CHOLECALCIFEROL 1,000 UNITS TABLET 1000 UNITS PO (09:17)
[2021-06-25] MEDS: FUROSEMIDE 20 MG TABLET PO (09:17)
[2021-06-25] MEDS: SACUBITRIL/VALSARTAN 24-26 MG TABLET 1 TAB PO (09:18)
[2021-06-25] MEDS: METOPROLOL SUCCINATE EXT REL 25 MG TABCR PO (09:18)
[2021-06-25] MEDS: buPROPion HCL SR (12 HR) 150 MG TAB PO (09:18)
[2021-06-25] MEDS: ENOXAPARIN 40 MG/0.4 ML SYRINGE SUB-Q (09:19)
[2021-06-25 09:49] LABS: Alveolar/Arterial O2 Gradient 78.1 mmHg; Base Excess ABG 5.2 mEq/l (+/-2.0); Fractional Inspired Oxygen 21 %; HCO3 ABG 29.6 mEq/l (22.0-26.0); Oxygen Content ABG 20.2 %vol (16.0-22.0); Oxygen Saturation ABG 96.6 % (95.0-100.0); Oxyhemoglobin 95.5 % THb (90.0-100.0); PCO2 ABG 42.5 mmHg (35.0-45.0); PO2 ABG 82.4 mmHg (80.0-100.0); PO2 FiO2 Ratio Arterial Blood 3.92 %; pH ABG 7.461 (7.350-7.450)
[2021-06-25 10:03] LABS: Modified Allen's Test Pass; Site Drawn RIGHT RADIAL
[2021-06-25 10:04] LABS: Device ROOM AIR
--- NOTE | 2021-06-25 11:08 | PM.PNCARD ---
Progress Note: A&P Assessment and Plan (1) Cardiomyopathy: Code(s): I42.9 - Cardiomyopathy, unspecified Status: Acute Assessment and Plan: This is probably nonischemic in etiology. Considerations include obesity cardiomyopathy, viral cardiomyopathy, sleep apnea related versus idiopathic versus hypertension versus other. Continue Toprol-XL and Entresto Will likely get a cardiac MRI as an outpatient to evaluate for any evidence of myocarditis or infiltrative cardiomyopathy and eventually a stress test also as an outpatient albeit unlikely that this is ischemic in etiology. Life vest is on (2) Systolic congestive heart failure: Code(s): I50.20 - Unspecified systolic (congestive) heart failure Status: Acute Assessment and Plan: As detailed above. Continue Entresto, beta-valarie, furosemide (3) Elevated troponin I level: Code(s): R77.8 - Other specified abnormalities of plasma proteins Status: Acute Assessment and Plan: Likely related to CHF above (4) Tachycardia: Code(s): R00.0 - Tachycardia, unspecified Status: Acute Assessment and Plan: Likely for decompensation (5) Elevated troponin: Code(s): R77.8 - Other specified abnormalities of plasma proteins Status: Acute (6) Morbid obesity: Code(s): E66.01 - Morbid (severe) obesity due to excess calories Status: Acute Subjective Date/time seen: 06/25/21 11:08 Interval history: 30-year-old with cough and shortness of breath. Date of service 06/24/2021: Feels better. Had a coughing fit yesterday but overall breathing is improving coughing is better. No chest pain Date of service 06/25/2021: Still somewhat short of breath but no chest pain. No swelling. Coughing improved. Tolerating medications and LifeVest in place Review of Systems Review of Systems: All systems reviewed & are unremarkable except as noted in HPI and below Constitutional: Constitutional: Denies excessive sweating, Denies fatigue, Denies headache(s) and Denies weakness Eyes: Eyes: Denies blurry vision ENT: Reports Normal hearing present, Denies headache(s), Denies lip swelling and Denies neck pain Cardiovascular: Cardiovascular: Denies chest pain, Reports pedal edema and Reports dyspnea Respiratory: Respiratory: Reports dyspnea Gastrointestinal: Gastrointestinal: Denies abdominal pain Genitourinary: Genitourinary: Denies hematuria and Denies flank pain Musculoskeletal: Musculoskeletal: Denies back pain and Denies neck pain Integumentary/Breasts: Skin/Breast: Denies dry skin Neurologic: Reports Normal hearing present, Denies confusion, Denies headache(s) and Denies weakness Psychiatric: Psychiatric: Denies anxiety and Denies confusion Endocrine: Endocrine: Denies excessive sweating and Denies fatigue Hematologic/Lymphatic: Hematologic/Lymphatic: Denies easy bleeding Allergic/Immunologic: Allergic/Immunologic: Denies GI upset with certain foods and Denies lip swelling Exam Narrative: Alert oriented. Appears to be in no acute distress Const: General: comfortable and no acute distress; No confusion Orientation/consciousness: No confusion HENMT: General nose exam: Normal nares present Eyes: Sclera: sclerae normal Neck: Neck: supple and no JVD Chest: Other: No reproducible chest wall pain to palpation Resp: Auscultation: diminished lung sounds Cardio: Rate: tachycardic Rhythm: regular rhythm Skin: General skin exam: normal color Neuro: General: No confusion Cranial nerves: Yes Normal hearing present Cognition (Neuro): normal cognition Speech: normal speech Extrem: General: normal to inspection and edema (Very mild bilateral lower extremity edema) Psych: Mental Status: mental status grossly normal Objective Data Vital Signs Vital Signs: Vital Signs - 24 hr 06/24/21 11:49 06/24/21 12:00 06/24/21 14:00 Temperature 36.8 C Pulse Rate 97 87 100 Respiratory
[2021-06-26 05:38] LABS: Legionella pneumophila Ag Ur Not Detected (Not Detected)
== END 2021-06-25 10:50 | disposition home or self-care (01) | DRG 291 ==
LOC: ANHED 06-22 04:53 → ANHIMU 06-22 07:37
PROVIDERS: Internal Medicine Cardiovascular Disease; Internal Medicine Pulmonary Disease; Admitting Provider Internal Medicine; Emergency Provider Emergency Medicine; Visit Provider Hospitalist
DX: I50.21 Acute systolic (congestive) heart failure (principal); J12.9 Viral pneumonia, unspecified; Z68.43 Body mass index [BMI] 50.0-59.9, adult; I42.8 Other cardiomyopathies; Z20.822 Contact with and (suspected) exposure to COVID-19; R77.8 Other specified abnormalities of plasma proteins; F32.9 Major depressive disorder, single episode, unspecified; E55.9 Vitamin D deficiency, unspecified; R93.1 Abnormal findings on diagnostic imaging of heart and coronary circulation; E66.01 Morbid (severe) obesity due to excess calories; G47.10 Hypersomnia, unspecified; Z87.891 Personal history of nicotine dependence
CPT/HCPCS: 36415; 36600; 71046; 71275; 80048; 80053; 80307; 81025; 82728; 82805; 83615; 83880; 84145; 84436; 84443; 84484; 85025; 85380; 85652; 86140; 86738; 87426; 87449; 93005; 96365; 96367; 96372; 96375; 99285; A9270; C8929; C9803; G0378; J0456; J0696; J1100; J1650; J1940; Q9957; Q9967

== ENCOUNTER 2021-08-27 08:18 | Outpatient (CLI) | payer OTHER, SELFPAY ==
--- NOTE | 2021-09-14 17:56 | WPDSLEEPSTUD ---
Sleep Study Date of Study: 08/27/21 <Daniela Richmond - Last Filed: 09/14/21 18:52> Ordering Provider: Elpidio Harrington MD <Daniela Richmond - Last Filed: 09/14/21 18:52> Interpreting Physician: Dnaiela Richmond DO <Daniela Richmond - Last Filed: 09/14/21 18:52> Sleep Study Type: Split Polysomnogram <Daniela Richmond - Last Filed: 09/14/21 18:52> Height: 1.6 m <Daniela Richmond - Last Filed: 09/14/21 18:52> Weight: 140.614 kg <Daniela Richmond - Last Filed: 09/14/21 18:52> Body Mass Index: 54.9 <Daniela Richmond - Last Filed: 09/14/21 18:52> Neck Circumference (inches): 20 <Daniela Richmond - Last Filed: 09/14/21 18:52> [place]: 6 <Daniela Richmond - Last Filed: 09/14/21 18:52> Reason for Sleep Study HSAT on 06/23/21 showed an AHI of 24.1, desaturation to 71% and 78 minutes with SpO2<88%; daytime hypersomnia <Daniela Richmond Last Filed: 09/14/21 18:52> Sleep History The patient is a 31-year-old female with newly diagnosed congestive heart failure (EF of 30-35% on 06/23/21), depression and anxiety that had a Split Night ordered due to hypersomnia and cardiomyopathy. the patient occasionally awakens from sleep short of breath. She occasionally awakens at night with heartburn, belching or cough. She constantly snores loud enough that others complain. She frequently has trouble sleeping when she has a K[place]. He rarely wakes up gasping for air throughout the night. He occasionally has breathing problems at night. She denies sweating excessively at night. She rarely has heart palpitations or irregular heartbeats during the night. She occasionally falls asleep during the day but never while driving. She denies cataplexy. She occasionally has trouble at work due to sleepiness. She rarely feels unable to move when waking up for falling asleep. He rarely experiences vivid dreamlike scenes upon awakening or falling asleep. She frequently has nightmares. She occasionally has thoughts racing through her mind. She occasionally feels sad, depressed and anxious. She denies noticing parts of her body jerk. She denies kicking throughout the night. She denies crawling and aching feelings in her legs. She occasionally has leg pain during the night. She denies grinding her teeth during sleep and awakening with jaw pain in the morning. She denies being bothered by pain during the day and is rarely awakened by pain during the night. She denies waking up feeling stiff in the morning with sore and achy muscles. She goes to bed at 1:00 a.m. on both weekdays and weekends. She can fall asleep within 30 minutes. She typically does not wake up throughout the night. She wakes up at 7:30 a.m. on weekdays and 8:00 a.m. on the weekends. She typically gets 4-6 hours of sleep per night. She will stay in bed for 5 minutes after awakening in the morning. She is currently living with her significant other and her 3 children. She denies consuming any caffeinated beverages within 2 hours of bedtime. She does not engage in physical exercise before bedtime. She will read and watch television before falling asleep. She does not take naps in the afternoon or the evening. She currently drinks 2 diet sodas or a cappuccino per day. She rarely drinks alcohol. She denies tobacco and recreational drug use. <Daniela Richmond DO - Last Filed: 09/14/21 18:52> [facility] Past Medical History Medical History: Medical History Depression Morbid obesity Vitamin D deficiency <Daniela Richmond DO - Last Filed: 09/14/21 18:52> Family History Family History: Family History Father Hypertension Diabetes mellitus Mother Hypertension Diabetes mellitus <Daniela Richmond DO - Last Filed: 09/14/21 18
[2021-09-14 18:01] VITALS: BMI 54.9
== END 2021-08-28 08:41 | disposition home or self-care (01) ==
LOC: ANHCSM 08:19
PROVIDERS: Visit Provider Internal Medicine Pulmonary Disease
DX: G47.10 Hypersomnia, unspecified (principal); G47.33 Obstructive sleep apnea (adult) (pediatric)
CPT/HCPCS: 95811

== ENCOUNTER 2021-10-01 12:35 | Emergency (ER) | payer OTHER, SELFPAY ==
--- NOTE | 2021-10-01 12:51 | ED.ABDPAIN ---
HPI - Abdominal Pain General Chief Complaint: Abdominal Pain Stated Complaint: rt side pelvic pain Time Seen by Provider: 10/01/21 12:51 Source: patient, family and RN notes reviewed Mode of arrival: ambulatory Limitations: no limitations History of Present Illness HPI narrative: Dionne is a 31-year-old female patient who ambulated into [facility]. She complains of right groin pain states this has been going on for months. Usually starts in the morning and goes away after she drinks water. Patient states she is only been drinking a cup and half of water per day. As she does not like water. Patient states the right groin pain has been going on for almost 2 months every morning when she wakes up. Patient states it goes away after she drinks water. She describes the pain as a dull emptiness. Patient states this morning she got up drink water and it did not go away. Patient denies any issues with bowel movements. Patient does have a long history of heart failure. Her ejection fraction was was 33% and within 1 year is up to 45%. Patient has an IUD does not have menstrual bleeding. She does states that she does get cramps monthly and states this is not what this feels. States she is sexually active but denies any need for STD testing. 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 Related Data Home Medications Medication Instructions Recorded Confirmed bupropion HCl 150 mg PO Q12H 06/22/21 10/01/21 cholecalciferol (vitamin D3) 1,000 unit PO DAILY 06/22/21 10/01/21 metoprolol succinate 50 mg PO DAILY 08/27/21 10/01/21 Allergies Allergy/AdvReac Type Severity Reaction Status Date / Time No Known Allergies Allergy Verified 10/01/21 12:48 Review of Systems Review of Systems: CONSTITUTIONAL: Denies body aches, fever, chills, or sweats. EYES: Denies visual changes, redness, or discharge. ENT: Denies rhinorrhea, congestion, sore throat, or otalgia. CARDIOVASCULAR: Denies chest pain, palpitations, or edema. RESPIRATORY: Denies cough or dyspnea. GASTROINTESTINAL: Denies abdominal pain, nausea, vomiting, or diarrhea. GENITOURINARY: Denies dysuria or hematuria.+ right sided aching SKIN: Denies rash, itching, or wounds. MUSCULOSKELETAL: Denies back pain, joint pain, or myalgia. NEUROLOGIC: Denies headache, numbness, tingling, or weakness. PSYCH: Denies depression or anxiety. All systems reviewed & are unremarkable except as noted in HPI and below PMFSH Past Medical History Medical History Depression Morbid obesity Vitamin D deficiency Family History Family History Father Hypertension Diabetes mellitus Mother Hypertension Diabetes mellitus Social History Social History Social History: Resides with her boyfriend and his 3 children. Works from home for [employer]. Nonsmoker. No recreational drugs. Drinks only at weddings and on holidays. Has 3 sisters and 1 brother, all well. Has gastric sleeve surgery scheduled for 07/26/2021. Smoking status: Never smoker Alcohol intake: current Alcohol use details: Drinks in moderation only on special occasions Substance use: former Substance use type: marijuana Other substance usage details: Stopped smoking cannabis several years ago. Last use: 11/2020 Additional occupation/education comments: [employer] Gender identity (if verbalized by the patient): Female Spiritual care concerns: No Comments At time of signature, I have reviewed and agree with nursing past medical, surgical, social and family history unless otherwise noted. Please see nursing chart for further information. There is no relevant family history pertinent to the presenting complaint Exam Narrative: GENERAL: Well-appearing, well-nourished, and in no acute dist
[2021-10-01 13:02] VITALS: BP 141/86; PULSE 81; RESP 16; TEMP 37; O2SAT 98
== END 2021-10-01 13:20 | disposition home or self-care (01) ==
PROVIDERS: Emergency Provider Nurse Practitioner Family; PCP Internal Medicine
DX: R10.2 Pelvic and perineal pain (principal)
CPT/HCPCS: 81003; 99212; G0463

== ENCOUNTER → 2021-10-06 07:31 | Outpatient (CLI) | payer OTHER, SELFPAY ==
--- NOTE | 2021-10-20 14:57 | WPDSLEEPSTUD ---
Sleep Study Date of Study: 10/06/21 Ordering Provider: Elpidio Harrington MD Interpreting Physician: Kate Velasquez MD Sleep Study Type: BiPAP Titration Height: 1.6 m Weight: 141.067 kg Body Mass Index: 55.0 Neck Circumference (inches): 18 [place]: 9 Reason for Sleep Study * 06/23/2021 Home sleep test with AHI 24.1, lowest saturation 71%, 78 minutes below 88% * 08/27/2021 split night study with AHI 74.9, Incomplete titration with worsening events during REM with significant desaturation. The patient's highest pressure was 18 cm. She returns now for a BiPAP titration Sleep History The patient is a 31-year-old female with newly diagnosed congestive heart failure (EF of 30-35% on 06/23/21), depression and anxiety that had a Split Night ordered due to hypersomnia and cardiomyopathy. the patient occasionally awakens from sleep short of breath. She occasionally awakens at night with heartburn, belching or cough. She constantly snores loud enough that others complain. She frequently has trouble sleeping when she has a K[place]. He rarely wakes up gasping for air throughout the night. He occasionally has breathing problems at night. She denies sweating excessively at night. She rarely has heart palpitations or irregular heartbeats during the night. She occasionally falls asleep during the day but never while driving. She denies cataplexy. She occasionally has trouble at work due to sleepiness. She rarely feels unable to move when waking up for falling asleep. He rarely experiences vivid dreamlike scenes upon awakening or falling asleep. She frequently has nightmares. She occasionally has thoughts racing through her mind. She occasionally feels sad, depressed and anxious. She denies noticing parts of her body jerk. She denies kicking throughout the night. She denies crawling and aching feelings in her legs. She occasionally has leg pain during the night. She denies grinding her teeth during sleep and awakening with jaw pain in the morning. She denies being bothered by pain during the day and is rarely awakened by pain during the night. She denies waking up feeling stiff in the morning with sore and achy muscles. She goes to bed at 1:00 a.m. on both weekdays and weekends. She can fall asleep within 30 minutes. She typically does not wake up throughout the night. She wakes up at 7:30 a.m. on weekdays and 8:00 a.m. on the weekends. She typically gets 4-6 hours of sleep per night. She will stay in bed for 5 minutes after awakening in the morning. She is currently living with her significant other and her 3 children. She denies consuming any caffeinated beverages within 2 hours of bedtime. She does not engage in physical exercise before bedtime. She will read and watch television before falling asleep. She does not take naps in the afternoon or the evening. She currently drinks 2 diet sodas or a cappuccino per day. She rarely drinks alcohol. She denies tobacco and recreational drug use. [facility] Past Medical History Medical History Depression Morbid obesity Vitamin D deficiency Family History Family History Father Hypertension Diabetes mellitus Mother Hypertension Diabetes mellitus Social History Social History Social History: Resides with her boyfriend and his 3 children. Works from home for [employer]. Nonsmoker. No recreational drugs. Drinks only at weddings and on holidays. Has 3 sisters and 1 brother, all well. Has gastric sleeve surgery scheduled for 07/26/2021. Smoking status: Never smoker Alcohol intake: current Alcohol use details: Drinks in moderation only on special occasions Substance use: former Substance use type: marijuana Other substance usage details: Stopped smoking cannabis several years ago. Last use: 11/2020 Additional oc
[2021-10-20 16:12] VITALS: BMI 55.0
== END ==
PROVIDERS: PCP Internal Medicine; Visit Provider Internal Medicine Pulmonary Disease
DX: G47.33 Obstructive sleep apnea (adult) (pediatric) (principal)
CPT/HCPCS: 95811

== ENCOUNTER 2021-10-10 17:41 | Emergency (ER) | payer OTHER, SELFPAY ==
--- NOTE | ~2021-10-10 | XR_ITS ---
EXAMINATION: XR chest 1V portable EXAM DATE: 10/10/2021 19:38 INDICATION: shortness of breath/palpitation today, no cardiac hx . TECHNIQUE: Portable AP frontal chest x-ray was obtained. Comparison is made to prior examination from 06/18/21. FINDINGS: The lungs are clear. There are no pleural effusions. Cardiac silhouette is prominent but magnified on this AP technique. There is no pneumothorax suspected. The bones and soft tissues are unremarkable. IMPRESSION: No acute cardiopulmonary findings. Reviewed, dictated and finalized at location A. LANCE COPYWRITER
--- NOTE | 2021-10-10 17:42 | ECG_ITS ---
Measurements Intervals [place] Rate: 75 P: 38 IL: 157 QRS: -55 QRSD: 93 T: 63 QT: 362 QTc: 405 Interpretive Statements SINUS RHYTHM VENTRICULAR PREMATURE COMPLEXES LEFT AXIS DEVIATION BORDERLINE R WAVE PROGRESSION, ANTERIOR LEADS BASELINE WANDER- I, III BORDERLINE ECG Electronically Signed On 10-10-2021 20:10:36 COMPENSATION INTERN by Juanito Joyner D.O.
[2021-10-10 17:50] VITALS: BP 153/100; PULSE 80; RESP 16; TEMP 36.2; O2SAT 100
[2021-10-10 18:54] VITALS: BP 142/80; PULSE 70; RESP 16; TEMP 36.4; O2SAT 98
--- NOTE | 2021-10-10 19:26 | ED.GENADULT ---
HPI - General Adult General Chief complaint: Arrhythmia/Palpitations Stated complaint: HEART PALPATATIONS Time Seen by Provider: 10/10/21 19:10 History of Present Illness HPI narrative: Patient is a 31-year-old female presents the emergency department with chief complaint of palpitations. Patient reports that she has history of congestive heart failure is currently on Lasix. Patient states that today she noticed a little bit of pressure sensation in her right wrist and then noticed that she started having what feels like skipped beats. The patient states that she did have multiple ones of these throughout the day patient states that she has never had episodes like this before patient denies chest pain denies shortness of breath denies heavy periods reports that she does take Lasix but does not potassium supplementation Related Data Home Medications Medication Instructions Recorded Confirmed bupropion HCl 150 mg PO Q12H 06/22/21 10/01/21 cholecalciferol (vitamin D3) 1,000 unit PO DAILY 06/22/21 10/01/21 metoprolol succinate 50 mg PO DAILY 08/27/21 10/01/21 Allergies Allergy/AdvReac Type Severity Reaction Status Date / Time No Known Allergies Allergy Verified 10/10/21 18:51 Review of Systems Review of Systems: A 10 system review of systems was completed on the patient and is negative except for what is stated in the HPI. Nursing and ancillary documentation was reviewed. [facility] Past Medical History Medical History Depression Morbid obesity Vitamin D deficiency Family History Family History Father Hypertension Diabetes mellitus Mother Hypertension Diabetes mellitus Social History Social History Social History: Resides with her boyfriend and his 3 children. Works from home for [employer]. Nonsmoker. No recreational drugs. Drinks only at weddings and on holidays. Has 3 sisters and 1 brother, all well. Has gastric sleeve surgery scheduled for 07/26/2021. Smoking status: Never smoker Alcohol intake: current Alcohol use details: Drinks in moderation only on special occasions Substance use: former Substance use type: marijuana Other substance usage details: Stopped smoking cannabis several years ago. Last use: 11/2020 Additional occupation/education comments: [employer] Gender identity (if verbalized by the patient): Female Spiritual care concerns: No Exam Narrative: GENERAL: Well-appearing, well-nourished, and in no acute distress. HEAD: Normocephalic, atraumatic. EYES: PERRLA and EOMI. ENT: Nares clear, no rhinorrhea or epistaxis. Mucous membranes moist. NECK: Supple. CHEST: Clear to auscultation. No respiratory distress. HEART: Regular rate and rhythm. No murmur heard. Normal peripheral pulses. ABDOMEN: Soft, nontender, nondistended, normal active bowel sounds. EXTREMITIES: Normal range of motion. No edema. SKIN: Warm, dry, no rash. NEURO: No focal deficits. Alert and oriented x3. PSYCH: Normal mood and affect. Course Course Emergency Course: No personnel EKG sinus rhythm rate 75 occasional PVC was Vital Signs Vital signs: Vital Signs Temperature 36.2 C L 10/10/21 17:50 Pulse Rate 80 10/10/21 17:50 Respiratory Rate 16 10/10/21 17:50 Blood Pressure 153/100 H 10/10/21 17:50 Pulse Oximetry 100 10/10/21 17:50 Temperature 36.4 C 10/10/21 18:54 Pulse Rate 70 10/10/21 18:54 Respiratory Rate 16 10/10/21 18:54 Blood Pressure 142/80 H 10/10/21 18:54 Pulse Oximetry 98 10/10/21 18:54 Medical Decision Making Vital Signs Vital Signs: Vital Signs Temperature 36.2 C L 10/10/21 17:50 Pulse Rate 80 10/10/21 17:50 Respiratory Rate 16 10/10/21 17:50 Blood Pressure 153/100 H 10/10/21 17:50 Pulse Oximetry 100 10/10/21 17:50 Temperature
[2021-10-10 20:09] LABS: Basophils Absolute Auto 0.1 K/mm3 (0.0-0.1); Eosinophils Absolute Auto 0.2 K/mm3 (0-0.3); Eosinophils Percent Auto 3.5 % (0-4.4); Hematocrit 42.4 % (37.0-47.0); Hemoglobin 13.9 g/dL (12.0-15.0); Lymphocytes Absolute Auto 1.68 K/mm3 (0.9-3.2); Mean Corpuscular HGB Conc 32.8 g/dl (32-36); Mean Corpuscular Volume 91.4 fl (80-100); Mean Platelet Volume 8.8 fl (7.4-10.4); Monocytes Absolute Auto 0.5 K/mm3 (0.1-0.6); Monocytes Percent Auto 10.4 % (2.6-8.5); Neutrophils Absolute Auto 2.7 K/mm3 (1.3-6.7); Neutrophils Percent Auto 52.1 % (45.5-73.1); Platelet Count Result 297 k/mm3 (150-375); Red Blood Count 4.64 M/mm3 (4.2-5.4); Red Cell Distribution Width 12.6 % (11.5-14.5); White Blood Count 5.1 K/mm3 (4.5-10.0)
[2021-10-10 20:15] LABS: Add Urine Microscopic? YES; Appearance Urine Cloudy (Clear); Bacteria Urine Trace /hpf; Bilirubin Urine Negative (Negative); Blood Urine Negative (Negative); Color Urine Yellow (Yellow); Glucose Urine UA Negative (Negative); Ketones Urine Negative (Negative); Leukocyte Esterase Ur Negative LEU/UL (Negative); Mucus Urine Rare /lpf; Nitrate Urine Negative (Negative); Protein Urine Negative (Negative); RBC Urine 0-2 /hpf (0-2); Specific Grav Ur 1.012 (1.001-1.035); Squamous Epithelial Cell Urine Moderate /hpf (Few); Urobilinogen Urine Negative mg/dL (<2.0); WBC Urine 0-3 /hpf
[2021-10-10 20:19] LABS: Alanine Aminotransferase 31 U/L (4-35); Albumin Level 4.5 g/dL (3.5-5.1); Alkaline Phosphatase 68 U/L (38-126); Anion Gap 6 mmol/L (8-16); Aspartate Amino Transferase 26 U/L (14-36); Bilirubin,Total 0.3 mg/dL (0.2-1.3); Blood Urea Nitrogen 10 mg/dL (7-17); Calcium 9.7 mg/dL (8.4-10.2); Carbon Dioxide 30 mmol/L (22-30); Chloride 99 mmol/L (98-107); Estimated CRCL calculation 140 ml/min; Estimated Glomerular Filt Rate > 60; Glucose 101 mg/dL (65-110); INR 0.9; Magnesium 1.7 mg/dL (1.6-2.3); Potassium 4.1 mmol/L (3.4-5.0); Prothrombin Time 12.5 Seconds (11.1-14.7); Sodium 135 mmol/L (137-145)
[2021-10-10 20:20] LABS: Partial Thromboplastin Time 26.6 SECONDS (22.3-36.8)
[2021-10-10 20:31] LABS: NT Pro B Type Natriuretic Pept 55 pg/mL (5-100); Troponin I < 0.012 ng/mL (0.000-0.034)
[2021-10-10] MEDS: MAGNESIUM SULF 2 GM/WATER 50ML 2 GM/50 ML BAG IVPB (22:11)
[2021-10-10 23:16] VITALS: BP 138/79; PULSE 77; RESP 16; O2SAT 100
== END 2021-10-10 23:23 | disposition home or self-care (01) ==
PROVIDERS: Emergency Provider Emergency Medicine; PCP Internal Medicine
DX: I49.3 Ventricular premature depolarization (principal); E83.42 Hypomagnesemia; I50.9 Heart failure, unspecified; E66.01 Morbid (severe) obesity due to excess calories; Z68.43 Body mass index [BMI] 50.0-59.9, adult; E55.9 Vitamin D deficiency, unspecified
CPT/HCPCS: 36415; 71045; 80053; 81001; 83735; 83880; 84484; 85025; 85610; 85730; 93005; 96365; 99284; J3475

== ENCOUNTER 2021-10-20 07:15 | Outpatient (RCR) | payer OTHER, SELFPAY ==
[2021-08-27 15:48] VITALS: PULSE 85
== END 2021-11-03 17:27 | disposition home or self-care (01) ==
LOC: ANHCPREHAB 07:15
PROVIDERS: Visit Provider Nurse Practitioner Adult Health
DX: I50.89 Other heart failure (principal)
CPT/HCPCS: 93798

== ENCOUNTER 2021-11-27 11:09 | Emergency (ER) | payer OTHER, SELFPAY ==
[2021-11-27 11:17] VITALS: BP 124/81; PULSE 80; RESP 20; TEMP 36.5; O2SAT 100
--- NOTE | 2021-11-27 11:51 | ED.GENADULT ---
HPI - General Adult General Chief complaint: Dental/Oral Stated complaint: abscess,tooth ache Source: patient Mode of arrival: ambulatory Limitations: no limitations History of Present Illness HPI narrative: Patient presents for evaluation of pain in the right mandible for the past few days. Pain is constant, described as shooting with radiation into the head. She states she had sinus congestion, rhinorrhea and sore throat last week, all of which have improved. No fever, chills, nausea, vomiting, cough or SOB. She states she has had some intermittent problems with right lower dental pain so was unsure whether her symptoms may be related. She has tried ibuprofen and applying ice packs with some improvement in her symptoms thereafter. Related Data Home Medications Medication Instructions Recorded Confirmed bupropion HCl 150 mg PO Q12H 06/22/21 11/27/21 cholecalciferol (vitamin D3) 1,000 unit PO DAILY 06/22/21 11/27/21 metoprolol succinate 50 mg PO DAILY 08/27/21 11/27/21 Allergies Allergy/AdvReac Type Severity Reaction Status Date / Time No Known Allergies Allergy Verified 11/27/21 11:33 Review of Systems Review of Systems: CONSTITUTIONAL: Denies fever, chills, or sweats. EYES: Denies visual changes, redness, or discharge. ENT: Reports recent rhinorrhea, congestion and sore throat, all of which are improved. Reports pain in right mandibular region. Reports right sided cervical lymphadenopathy CARDIOVASCULAR: Denies chest pain, palpitations, or edema. RESPIRATORY: Denies cough or dyspnea. GASTROINTESTINAL: Denies abdominal pain, nausea, vomiting, or diarrhea. GENITOURINARY: Denies dysuria or hematuria. SKIN: Denies rash or itching. MUSCULOSKELETAL: Denies back pain, joint pain, or myalgia. NEUROLOGIC: Reports headache. Denies numbness, dizziness, or weakness. PSYCHIATRIC: Denies anxiety or depression. [facility] Past Medical History Medical History (Updated 11/27/21 @ 12:27 by ISIDRO Lubin, NEO) CHF (congestive heart failure) Depression Morbid obesity LEILA (obstructive sleep apnea) Vitamin D deficiency Surgical History Surgical History No pertinent past surgical history Family History Family History Father Hypertension Diabetes mellitus Mother Hypertension Diabetes mellitus Social History Social History Social History: Resides with her boyfriend and his 3 children. Works from home for [employer]. Nonsmoker. No recreational drugs. Drinks only at weddings and on holidays. Has 3 sisters and 1 brother, all well. Has gastric sleeve surgery scheduled for 07/26/2021. Smoking status: Never smoker Alcohol intake: current Alcohol use details: Drinks in moderation only on special occasions Substance use: former Substance use type: marijuana Other substance usage details: Stopped smoking cannabis several years ago. Last use: 11/2020 Additional occupation/education comments: [employer] Gender identity (if verbalized by the patient): Female Spiritual care concerns: No Exam Narrative: GENERAL: Well-appearing, well-nourished, and in no acute distress. HEAD: Normocephalic, atraumatic. EYES: PERRLA and EOMI. ENT: Nares clear, no rhinorrhea or epistaxis. Mucous membranes moist. Bilateral tonsillar enlargement with mild erythema. No exudate. Uvula is midline. Multiple dental fillings present. Bilateral TMs pearly taylor nonbulging NECK: Supple. Right cervical lymph nodes are tender to palpation. There is no lymph node enlargement on exam. No masses. No carotid bruits or JVD CHEST: Clear to auscultation. No respiratory distress. No wheezes rales or rhonchi HEART: Regular rate and rhythm. No murmur heard. Normal peripheral pulses. ABDOMEN: Soft, nontender, nondistended, normal active bowel sounds.
== END 2021-11-27 12:35 | disposition home or self-care (01) ==
PROVIDERS: Emergency Provider Nurse Practitioner; PCP Internal Medicine
DX: K02.9 Dental caries, unspecified (principal); R59.9 Enlarged lymph nodes, unspecified; J02.9 Acute pharyngitis, unspecified; Z20.822 Contact with and (suspected) exposure to COVID-19; I50.9 Heart failure, unspecified; G47.33 Obstructive sleep apnea (adult) (pediatric); E55.9 Vitamin D deficiency, unspecified; E66.01 Morbid (severe) obesity due to excess calories; Z68.43 Body mass index [BMI] 50.0-59.9, adult; F32.9 Major depressive disorder, single episode, unspecified
CPT/HCPCS: 87081; 87426; 87880; 99213; C9803; G0463

== ENCOUNTER 2022-01-01 17:21 | Emergency (ER) | payer OTHER, SELFPAY ==
[2022-01-01] VITALS (22 sets, daily range): BP systolic 115–142; BP diastolic 58–99; PULSE 89–110; RESP 9–31; TEMP 36.4–37.4; O2SAT 96–99
--- NOTE | ~2022-01-01 | XR_ITS ---
EXAMINATION: XR chest 2V 01/01/2022 18:00 INDICATION: Chest palpitations. Shortness of breath. History of CHF. PROCEDURE: 2 view chest COMPARISON: 10/10/2021 FINDINGS: The lungs are clear. The cardiomediastinal silhouette is within normal limits. There are no pleural effusions. There is no pneumothorax suspected. IMPRESSION: 1: NO ACUTE CARDIOPULMONARY DISEASE. Reviewed, dictated and finalized at location A. DING TECHNICIAN
--- NOTE | 2022-01-01 17:26 | ECG_ITS ---
Measurements Intervals [place] Rate: 96 P: 55 TN: 144 QRS: 65 QRSD: 96 T: 49 QT: 332 QTc: 421 Interpretive Statements SINUS RHYTHM LOW QRS VOLTAGE IN PRECORDIAL LEADS [QRS DEFLECTION < 1.0 mV IN CHEST LEADS] BORDERLINE ECG COMPARED TO ECG 10/10/2021 17:48:32 NO SIGNIFICANT CHANGES Electronically Signed On 01-05-2022 13:06:04 ENTERPRISE SOFTWARE ENGINEER by Len Mcdonald M.D.
--- NOTE | 2022-01-01 17:29 | ED.ARRPALP ---
HPI - Arrhythmia/Palpitations General Chief Complaint: Arrhythmia/Palpitations <Radha Arroyo PA-C - Last Filed: 01/02/22 01:08> Stated Complaint: palpitations <SANDRA Blanco Last Filed: 01/02/22 01:08> Time Seen by Provider: 01/01/22 17:28 <SANDRA Blanco Last Filed: 01/02/22 01:08> Source: patient <SANDRA Blanco Last Filed: 01/02/22 01:08> Mode of arrival: ambulatory <SANDRA Blanco Last Filed: 01/02/22 01:08> Limitations: no limitations <SANDRA Blanco Last Filed: 01/02/22 01:08> History of Present Illness HPI narrative: Patient is a 31-year-old female, with past medical history of heart failure and anxiety, who presents to the ED with complaints of heart palpitations. Patient reports she was eating lunch at a restaurant approximately 1 hour ago when she developed palpitations. She states it felt like her heart was skipping beats. She looked at her apple watch at that time and noticed her heart rate was ranging from 100-115. She states her normal resting heart rate is typically between 60 to 70 bpm. She began to feel anxious at that time and reported having SOB and slight discomfort in her chest, but denied any significant pain or pressure. She also mentions having pain in her left lower chest/abdomen with deep inspiration. She has had a cough for the past 2 days, but denies any fever, chills, congestion, nausea, vomiting, abdominal pain, back pain, hemoptysis, orthopnea, BLE edema or pain. Patient was diagnosed with COVID, heart failure, and cardiomyopathy in May 2021. She wore a LifeVest at that time. Her ethologist is Dr. Sheets. Per records, patient has EF of 30 to 35%. She is on Entresto. <SANDRA Blanco Last Filed: 01/02/22 01:08> Related Data Home Medications: Home Medications Medication Instructions Recorded Confirmed bupropion HCl 150 mg PO Q12H 06/22/21 11/27/21 metoprolol succinate 50 mg PO DAILY 08/27/21 11/27/21 <Radha Arroyo PA-C - Last Filed: 01/02/22 01:08> Allergies/Adverse Reactions: Allergies Allergy/AdvReac Type Severity Reaction Status Date / Time No Known Allergies Allergy Verified 11/27/21 11:33 <Radha Arroyo PA-C - Last Filed: 01/02/22 01:08> Review of Systems Review of Systems: CONSTITUTIONAL: Denies fever, chills, or sweats. ENT: Denies congestion. CARDIOVASCULAR: Reports discomfort in chest and palpitations. Denies chest pain or pressure, edema, orthopnea. RESPIRATORY: Reports SEWELL, cough X 2 days, left lower chest/upper abdomen pain with inspiration. Denies hemoptysis. GASTROINTESTINAL: Denies abdominal pain, nausea, vomiting, or diarrhea. SKIN: Denies rash or itching. MUSCULOSKELETAL: Denies back pain, BLE edema or pain. NEUROLOGIC: Denies headache, numbness, or weakness. PSYCHIATRIC: Reports anxiety. <Radha Arroyo PA-C - Last Filed: 01/02/22 01:08> All systems reviewed & are unremarkable except as noted in HPI and below <Radha Arroyo PA-C - Last Filed: 01/02/22 01:08> [facility] Past Medical History Medical History: Medical History Anxiety CHF (congestive heart failure) Depression Morbid obesity LEILA (obstructive sleep apnea) Vitamin D deficiency <Radha Arroyo PA-C - Last Filed: 01/02/22 01:08> Surgical History Surgical History: Surgical History No pertinent past surgical history <Radha Arroyo PA-C - Last Filed: 01/02/22 01:08> Family History Family History: Family History Father Hypertension Diabetes mellitus Mother Hypertension Diabetes mellitus <Radha Arroyo PA-C - Last Filed: 01/02/22 01:08> Social History Social History: Social History Social History: Resides with her boyfriend and his
[2022-01-01 17:57] LABS: Basophils Percent Auto 0.7 % (0.2-1.2); Eosinophils Absolute Auto 0.2 K/mm3 (0-0.3); Hematocrit 38.4 % (37.0-47.0); Hemoglobin 12.6 g/dL (12.0-15.0); Immature Granulocyte Absolute 0.01 K/mm3 (0.00-0.031); Immature Granulocyte Percent A 0.2 % (0-0.5); Lymphocytes Absolute Auto 1.88 K/mm3 (0.9-3.2); Lymphocytes Percent Auto 31.6 % (18.3-44.2); Mean Corpuscular HGB Conc 32.8 g/dl (32-36); Mean Corpuscular Hemoglobin 30.4 pg (26-34); Mean Corpuscular Volume 92.8 fl (80-100); Mean Platelet Volume 8.5 fl (7.4-10.4); Monocytes Absolute Auto 0.4 K/mm3 (0.1-0.6); Monocytes Percent Auto 6.7 % (2.6-8.5); Neutrophils Absolute Auto 3.4 K/mm3 (1.3-6.7); Neutrophils Percent Auto 57.8 % (45.5-73.1); Platelet Count Result 289 k/mm3 (150-375); Red Blood Count 4.14 M/mm3 (4.2-5.4); Red Cell Distribution Width 12.5 % (11.5-14.5); White Blood Count 5.9 K/mm3 (4.5-10.0)
[2022-01-01 18:07] LABS: Alanine Aminotransferase 23 U/L (4-35); Albumin Level 4.4 g/dL (3.5-5.1); Alkaline Phosphatase 73 U/L (38-126); Anion Gap 6 mmol/L (8-16); Aspartate Amino Transferase 37 U/L (14-36); Bilirubin,Total 0.4 mg/dL (0.2-1.3); Blood Urea Nitrogen 11 mg/dL (7-17); Calcium 9.3 mg/dL (8.4-10.2); Carbon Dioxide 31 mmol/L (22-30); Chloride 103 mmol/L (98-107); Estimated CRCL calculation 140 ml/min; Estimated Glomerular Filt Rate > 60; Glucose 110 mg/dL (65-110); Potassium 3.7 mmol/L (3.4-5.0); Sodium 140 mmol/L (137-145)
[2022-01-01 18:21] LABS: NT Pro B Type Natriuretic Pept 54 pg/mL (5-100); Troponin I 0.031 ng/mL (0.000-0.034)
[2022-01-01 18:28] LABS: D Dimer < 0.22 ug/mL (<0.48)
--- NOTE | 2022-01-01 20:05 | PC.NURSE ---
Called lab and spoke to Jeanie to add on MG
[2022-01-01 20:13] LABS: Magnesium 1.8 mg/dL (1.6-2.3)
[2022-01-01 21:31] LABS: Troponin I < 0.012 ng/mL (0.000-0.034)
== END 2022-01-01 21:40 | disposition home or self-care (01) ==
PROVIDERS: Physician Assistant; Emergency Provider Emergency Medicine; PCP Internal Medicine
DX: R00.2 Palpitations (principal); I50.9 Heart failure, unspecified; Z86.16 Personal history of COVID-19; I42.9 Cardiomyopathy, unspecified; G47.33 Obstructive sleep apnea (adult) (pediatric); E55.9 Vitamin D deficiency, unspecified; F32.A Depression, unspecified; F41.9 Anxiety disorder, unspecified; E66.01 Morbid (severe) obesity due to excess calories; Z68.43 Body mass index [BMI] 50.0-59.9, adult
CPT/HCPCS: 36415; 71046; 80053; 83735; 83880; 84484; 85025; 85380; 93005; 99284

== ENCOUNTER 2022-01-13 12:02 | Outpatient (CLI) | payer OTHER, SELFPAY ==
[2022-01-13 12:37] LABS: Anion Gap 2 mmol/L (8-16); Blood Urea Nitrogen 10 mg/dL (7-17); Calcium 9.3 mg/dL (8.4-10.2); Carbon Dioxide 33 mmol/L (22-30); Chloride 102 mmol/L (98-107); Estimated Glomerular Filt Rate > 60; Glucose 105 mg/dL (65-110); Magnesium 1.9 mg/dL (1.6-2.3); Potassium 4.3 mmol/L (3.4-5.0); Sodium 137 mmol/L (137-145)
== END 2022-01-13 12:03 | disposition home or self-care (01) ==
PROVIDERS: PCP Internal Medicine; Visit Provider Internal Medicine Cardiovascular Disease
DX: I42.8 Other cardiomyopathies (principal); I50.22 Chronic systolic (congestive) heart failure; I49.3 Ventricular premature depolarization
CPT/HCPCS: 36415; 80048; 83735

== ENCOUNTER 2022-03-22 16:42 | Emergency (ER) | payer OTHER, SELFPAY ==
[2022-03-22 16:47] VITALS: BP 149/97; PULSE 95; RESP 16; TEMP 36.8; O2SAT 100
[2022-03-22 16:54] VITALS: BP 149/97; PULSE 95; RESP 16; TEMP 36.8; O2SAT 100
--- NOTE | 2022-03-22 16:55 | ED.URI ---
HPI - URI/Sore Throat General Chief Complaint: Upper Respiratory Infection Stated Complaint: headache, fluid in lungs, fatigue Time Seen by Provider: 03/22/22 16:43 Source: patient Mode of arrival: ambulatory Limitations: no limitations History of Present Illness HPI Narrative: 31-year-old female presents to [facility] with complaints of nonproductive cough, chest congestion, bodyaches, chills, nausea, headache, fatigue and low-grade fevers of 99.7 for the past 2 days. Patient has been taking [id number] Mucinex with minimal relief. Patient is a non-smoker. Patient reports that her boyfriend's children recently were ill. Patient denies recent travel. Patient denies shortness of breath, wheezing, vomiting or diarrhea MD elicited complaint: fever and cough Onset (ago): day(s) (2) Able to tolerate fluids by mouth: No Associated symptoms: cough Treatments prior to arrival: cold medicine Related Data Home Medications Medication Instructions Recorded Confirmed bupropion HCl 150 mg tablet,12 hr 150 mg PO Q12H 06/22/21 11/27/21 sustained-release metoprolol succinate 50 mg 50 mg PO DAILY 08/27/21 11/27/21 tablet,extended release 24 hr buspirone 5 mg tablet tablet 03/22/22 Allergies Allergy/AdvReac Type Severity Reaction Status Date / Time No Known Allergies Allergy Verified 11/27/21 11:33 Review of Systems Constitutional: Constitutional: Reports chills, Denies fatigue, Reports fever(s) and Denies weakness ENT: Denies dizziness Cardiovascular: Cardiovascular: Denies chest pain, Denies rapid heart rate, Denies radiating jaw, neck or arm pain and Denies slow heart rate Respiratory: Respiratory: Reports chest congestion, Reports cough, Denies dyspnea and Denies wheezing Gastrointestinal: Gastrointestinal: Denies abdominal pain, Denies bloating and Denies constipation Integumentary/Breasts: Skin/Breast: Denies rash Neurologic: Denies vertigo and Denies dizziness PMFSH Past Medical History Medical History Anxiety CHF (congestive heart failure) Depression Morbid obesity LEILA (obstructive sleep apnea) Vitamin D deficiency Surgical History Surgical History No pertinent past surgical history Family History Family History Father Hypertension Diabetes mellitus Mother Hypertension Diabetes mellitus Social History Social History Social History: Resides with her boyfriend and his 3 children. Works from home for [employer]. Nonsmoker. No recreational drugs. Drinks only at weddings and on holidays. Has 3 sisters and 1 brother, all well. Has gastric sleeve surgery scheduled for 07/26/2021. Smoking status: Never smoker Alcohol intake: current Alcohol use details: Drinks in moderation only on special occasions Substance use: former Substance use type: marijuana Other substance usage details: Stopped smoking cannabis several years ago. Last use: 11/2020 Additional occupation/education comments: [employer] Gender identity (if verbalized by the patient): Female Spiritual care concerns: No Comments At time of signature, I agree with nursing past medical, surgical, social and family history. There is no relevant family history pertinent to the presenting complaint. Exam Const: General: healthy appearing and no acute distress Nutritional Appearance: well nourished Orientation/consciousness: patient oriented x3 Limitations: no limitations HENMT: Head: normal to inspection Ears: external ears normal General nose exam: Normal external nose present and Normal nares present Face and sinus: normal facial exam Mouth: Yes Normal oral and palatal mucosa present Throat: posterior oropharynx normal and uvula midline Eyes: Conjunctivae: conjunctivae normal Neck: Neck:
== END 2022-03-22 17:32 | disposition home or self-care (01) ==
PROVIDERS: Emergency Provider Nurse Practitioner Family
DX: J06.9 Acute upper respiratory infection, unspecified (principal); Z20.822 Contact with and (suspected) exposure to COVID-19; F41.9 Anxiety disorder, unspecified; F32.A Depression, unspecified; I50.9 Heart failure, unspecified; E66.01 Morbid (severe) obesity due to excess calories; Z68.43 Body mass index [BMI] 50.0-59.9, adult; G47.33 Obstructive sleep apnea (adult) (pediatric)
CPT/HCPCS: 87426; 87804; 99213; C9803; G0463

== ENCOUNTER 2022-10-26 18:37 | Emergency (ER) | payer OTHER, SELFPAY ==
--- NOTE | 2022-10-26 20:07 | PC.NURSE ---
first call for triage 1935, no answer second call for triage 1948, no answer
== END 2022-10-26 20:07 | disposition left against medical advice (07) ==
PROVIDERS: PCP Internal Medicine
DX: Z53.21 Procedure and treatment not carried out due to patient leaving prior to being seen by health care provider (principal)
CPT/HCPCS: 99199

== ENCOUNTER 2023-04-03 08:02 | Outpatient (CLI) | payer OTHER, SELFPAY ==
--- NOTE | 2023-04-21 14:58 | WPDSLEEPSTUD ---
Sleep Study Date of Study: 04/03/23 Ordering Provider: Elpidio Harrington MD Interpreting Physician: Kate Velasquez MD Sleep Study Type: Split Polysomnogram Height: 1.57 m Weight: 89.358 kg Body Mass Index: 36.0 Neck Circumference (inches): 15 Desha: 4 Reason for Sleep Study History of obstructive sleep apnea, has used BiPAP, she has had over 100 lb weight loss Sleep History Dionne Davis is a 32-year-old female with history of cardiomyopathy who is having a split night polysomnogram for evaluation of obstructive sleep apnea. She never awakens from sleep short of breath. She never awakens at night with heartburn, belching or cough.??She never snores, and never snores loudly enough that others complain. She occasionally has trouble sleeping when she has a cold. She never suddenly wakes up gasping for breath during the night. She never has breathing problems at night. She never sweats excessively at night. She never notices her heart pounding or beating irregularly during the night. She never falls asleep during the day. She never falls asleep while driving. She never experiences loss of muscle tone with strong emotion. She never feels paralyzed on waking or falling asleep. She rarely experiences vivid dreams upon waking or falling asleep. She never feels afraid of going to sleep. She rarely has nightmares. She occasionally recalls her dreams. She rarely has thoughts racing through her mind. She occasionally feels sad or depressed. She occasionally feels anxiety or worry about things. She never notices parts of her body jerk. She never kicks during the night. She never feels crawling or aching feelings in her legs. She never feels leg pain at night. She never grinds her teeth or has morning jaw pain. She never feels bothered by pain during the day and awakened by pain during the night. She rarely wakes up feeling stiff, sore, and achy in the morning with pain in her neck, spine, or joints. ? ? Normal bedtime is around 11:00 p.m. , taking about 30 minutes to fall asleep. She typically gets about 6-8 hours of sleep per night. Her wake up time is 6:00 a.m.. she does not generally take naps. A short nap lasting 10 or 15 minutes may be refreshing. Most of the time she feels adequate on waking. She feels better in the morning or afternoon compared to the evening. Habits:??Tobacco: Never Caffeine: 2 coffee or espressos daily Alcohol: none Recreational substances:none PMFSH Past Medical History Medical History Anxiety CHF (congestive heart failure) Depression Morbid obesity LEILA (obstructive sleep apnea) Vitamin D deficiency Surgical History Surgical History H/O gastric sleeve History of endoscopy No pertinent past surgical history Family History Family History Father Hypertension Diabetes mellitus Mother Hypertension Diabetes mellitus Social History Social History Social History: Resides with her boyfriend and his 3 children. Works from home for [employer]. Nonsmoker. No recreational drugs. Drinks only at weddings and on holidays. Has 3 sisters and 1 brother, all well. Has gastric sleeve surgery scheduled for 07/26/2021. Smoking status: Never smoker Alcohol intake: current Alcohol use details: Drinks in moderation only on special occasions Substance use: former Substance use type: marijuana Other substance usage details: Stopped smoking cannabis several years ago. Last use: 11/2020 Living arrangements: alone Occupation/Education: occupation Additional occupation/education comments: [employer] Gender identity (if verbalized by the patient): Female Spiritual care concerns: No Medications Home Medications Medication Instructions
[2023-04-21 15:32] VITALS: BMI 36.0
== END 2023-04-04 07:53 | disposition home or self-care (01) ==
LOC: ANHCSM 08:03
PROVIDERS: PCP Internal Medicine; Visit Provider Internal Medicine Pulmonary Disease
DX: G47.33 Obstructive sleep apnea (adult) (pediatric) (principal)
CPT/HCPCS: 95811